=== PATIENT | male | born 1970 | race Caucasian/White ===

== ENCOUNTER → 2020-07-28 | Outpatient (CLI) | payer OTHER | END | disposition home or self-care (01) | LOC: RAD 11:27 | PROVIDERS: ATTEND Family Medicine | DX: R10.11 Right upper quadrant pain (principal) | CPT/HCPCS: 78227; A9537 ==

== ENCOUNTER 2020-08-26 13:58 | Outpatient (CLI) | payer OTHER ==
[2020-08-26] MEDS ORDERED: omeprazole PO (14:30)
[2020-08-26] MEDS ORDERED: CELE200C PO (14:30)
[2020-08-26] MEDS ORDERED: TRAZ-175 PO (14:30)
[2020-08-26] MEDS ORDERED: ACYC-113 PO (14:30)
[2020-08-26] MEDS ORDERED: OMEP40CA42 PO (14:47)
== END 2020-08-26 23:59 | disposition home or self-care (01) ==
LOC: STAR 13:58
PROVIDERS: ATTEND Surgery
DX: Z01.812 Encounter for preprocedural laboratory examination (principal); Z20.822 Contact with and (suspected) exposure to COVID-19
CPT/HCPCS: 87635; 93005

== ENCOUNTER 2020-09-01 06:47 | Day surgery (SDC) | payer OTHER ==
[~2020-09-01] VITALS: Ht 188 cm; Wt 109.4 kg
[~2020-09-01 06:47] MED LIST: ACYC-113 PO; CELE200C PO; OMEP40CA42 PO; TRAZ-175 PO; omeprazole PO
[2020-09-01 07:07] VITALS: BP 125/78
[2020-09-01] MEDS ORDERED: LACTATED RINGERS 1,000 ML IV SCH (07:30)
[2020-09-01] MEDS ORDERED: CHLORHEXIDINE 15 ML UDC MM ONE (07:30)
[2020-09-01] MEDS ORDERED: BUPIVACAINE/PF 0.25% ONE (07:39)
[2020-09-01] MEDS ORDERED: EPINEPHRINE 1 MG/ML, 1ML ONE (07:39)
[2020-09-01] MEDS ORDERED: MIDAZOLAM 1 MG/ML, 2ML ONE (08:15)
[2020-09-01] MEDS ORDERED: FENTANYL PF 250 MCG/5ML ONE ×2 (08:15→09:36)
[2020-09-01] MEDS ORDERED: MEPERIDINE/PF 25MG/0.5ML IVPush PRN (08:30)
[2020-09-01] MEDS ORDERED: FENTANYL PF 100 MCG/2ML IV PRN (08:30)
[2020-09-01] MEDS ORDERED: morphine SULFATE 10 MG/ML, 1ML IVPush PRN (08:30)
[2020-09-01] MEDS ORDERED: HYDROmorphone 1 MG/ML, 1ML INJ IVPush PRN (08:30)
[2020-09-01] MEDS ORDERED: hydrALAzine 20 MG/ML, 1ML IV PRN (08:30)
[2020-09-01] MEDS ORDERED: LABETALOL 5MG/ML, 20ML IV PRN (08:30)
[2020-09-01] MEDS ORDERED: ONDANSETRON 2MG/ML, 2ML IVPush PRN (08:30)
[2020-09-01] MEDS ORDERED: ACETAMINOPHEN 325 MG TABLET PO PRN (08:30)
[2020-09-01] MEDS ORDERED: OXYcodone 5 MG/5 ML ORAL.SOL UDC PO PRN (08:30)
[2020-09-01] MEDS ORDERED: BUPIVACAINE/PF-EPI 0.25% 1:200K INFIL ONE ×2 (09:21→09:31)
[2020-09-01] MEDS ORDERED: NEOSTIGMINE 1 MG/ML, 10ML ONE (09:36)
[2020-09-01] MEDS ORDERED: PROPOFOL 10 MG/ML, 20ML ONE (09:36)
[2020-09-01] MEDS ORDERED: GLYCOPYRROLATE 0.2MG/1ML, 5ML ONE (09:36)
[2020-09-01] MEDS ORDERED: ROCURONIUM 10MG/ML,5ML ONE (09:36)
[2020-09-01] MEDS ORDERED: CEFAZOLIN 1,000 MG ONE (09:36)
[2020-09-01] MEDS ORDERED: SUGAMMADEX 200 MG/2 ML IVPush ONE (09:48)
[2020-09-01] MEDS ORDERED: OXYC5TAB98 PO (10:51)
[2020-09-01] MEDS ORDERED: MEPERIDINE/PF 25MG/ML,1ML ONE (11:16)
== END 2020-09-01 12:35 | disposition home or self-care (01) ==
LOC: OUT 06:47
PROVIDERS: ATTEND Surgery
DX: K81.1 Chronic cholecystitis (principal); K21.9 Gastro-esophageal reflux disease without esophagitis; M19.90 Unspecified osteoarthritis, unspecified site; G47.00 Insomnia, unspecified; Z98.890 Other specified postprocedural states; Z79.899 Other long term (current) drug therapy
CPT/HCPCS: 47562; 88304; J0171; J0690; J2250; J2704; J2710; J3010; J7120